=== PATIENT | female | born 1955 | race Caucasian/White ===

== ENCOUNTER 2018-05-01 09:55 | Emergency (ER) | payer OTHER ==
[2018-05-01] MEDS: KETOROLAC 30 MG INJ IM (10:29)
== END 2018-05-01 13:01 | disposition left against medical advice (07) ==
LOC: FTE 13:01
DX: S82.122A Displaced fracture of lateral condyle of left tibia, initial encounter for closed fracture (principal); E11.9 Type 2 diabetes mellitus without complications; W01.0XXA Fall on same level from slipping, tripping and stumbling without subsequent striking against object, initial encounter; Y92.89 Other specified places as the place of occurrence of the external cause; Z79.82 Long term (current) use of aspirin; Z79.84 Long term (current) use of oral hypoglycemic drugs
CPT/HCPCS: 29515; 73562; 96372; 99284-25

== ENCOUNTER 2018-06-02 17:03 | Inpatient (IN) | payer OTHER ==
[2018-06-02 19:48] LABS: ADD MAN DIFF? NO
[2018-06-02 19:50] LABS: WHITE BLOOD COUNT 16.6 10^3/ul (4.8-10.8)
[2018-06-02 19:50] LABS: BASOPHIL # 0.1 10^3/ul (0.0-0.1); BASOPHILS % 0.7 % (0.0-2.0); EOSINOPHILS # 0.4 10^3/ul (0.0-0.5); EOSINOPHILS % 2.1 % (0.0-7.0); HEMATOCRIT 39.7 % (37.0-47.0); HEMOGLOBIN 12.4 g/dl (12.0-16.0); LYMPHOCYTES % 30.2 % (15.0-51.0); MEAN CORPUSCULAR HEMOGLOBIN 24.9 pg (29.0-33.0); MEAN CORPUSCULAR HGB CONC 31.2 g/dl (32.0-37.0); MEAN CORPUSCULAR VOLUME 79.7 fl (82.0-101.0); MONOCYTE # 0.9 10^3/ul (0.3-0.9); MONOCYTES % 5.5 % (0.0-11.0); NEUTROPHIL # 10.1 10^3/ul (1.6-7.5); PLATELET COUNT 458 10^3/UL (140-415); RED BLOOD COUNT 4.98 10^6/ul (4.20-5.40)
[2018-06-02 20:07] LABS: INR 0.91; PROTIME 12.4 Sec (11.9-14.9)
[2018-06-02 20:08] LABS: PARTIAL THROMBOPLASTIN TIME 27.5 Sec (23.0-35.0)
[2018-06-02 20:11] LABS: ALANINE AMINOTRANSFERASE 13 IU/L (13-69); ALBUMIN 4.1 g/dl (3.3-4.9); ALBUMIN/GLOBULIN RATIO 1.07; ALKALINE PHOSPHATASE 154 IU/L (42-121); ANION GAP 11 (5-13); ASPARTATE AMINO TRANSFERASE 13 IU/L (15-46); BILIRUBIN,INDIRECT 0.2 mg/dl (0-1.1); BILIRUBIN,TOTAL 0.2 mg/dl (0.2-1.3); BLOOD UREA NITROGEN 11 mg/dl (7-20); CARBON DIOXIDE 25 mmol/L (21-31); CHLORIDE 105 mmol/L (97-110); CREATININE 0.54 mg/dl (0.44-1.00); Estimated GFR > 60 mL/min (>60); GLUCOSE 117 mg/dl (70-220); LIPASE 201 U/L (23-300); POTASSIUM 3.7 mmol/L (3.5-5.1); SODIUM 141 mmol/L (135-144); TOTAL PROTEIN 7.9 g/dl (6.1-8.1)
[2018-06-02] MEDS: SOD CHLORIDE 0.9% 250 ML IV (20:15)
[2018-06-02] MEDS ORDERED: ONDANSETRON 4 MG INJ IV ×2 (20:30→21:30)
[2018-06-02] MEDS ORDERED: morphine 2 MG INJ IV (20:30)
[2018-06-02] MEDS ORDERED: BISACODYL (EC) 5 MG TAB PO (20:30)
[2018-06-02] MEDS ORDERED: ACETAMINOPHEN 325 MG TAB PO (20:30)
[2018-06-02] MEDS ORDERED: DOCUSATE SODIUM 100 MG CAP PO (20:30)
[2018-06-02] MEDS ORDERED: NACL 0.9% 3 ML SYG IV (20:30)
[2018-06-02 20:48] LABS: HEMOGLOBIN A1C 12.5 % (0-5.9)
[2018-06-02] MEDS ORDERED: CEFAZOLIN 3 GM in DEXTROSE 5% 100 ML IVPB (21:30)
[2018-06-02] MEDS ORDERED: GLUCOSE GEL 15 GRAM TUBE BUCCAL (22:00)
[2018-06-02] MEDS ORDERED: GLUCOSE GEL 15 GRAM TUBE PO ×2 (22:00)
[2018-06-02] MEDS ORDERED: GLUCAGON 1 MG INJ IM (22:00)
[2018-06-02] MEDS ORDERED: DEXTROSE 50% 50 ML SYRINGE IV ×2 (22:00)
[2018-06-02] MEDS: INSULIN GLARGINE [LANTus] (100 UNITS/ML) SYG SC (22:49)
[2018-06-02 23:04] LABS: MAGNESIUM 1.8 mg/dl (1.7-2.5)
[2018-06-03] MEDS: POTASSIUM CHLORIDE (SR) 20 MEQ TAB PO (00:12)
[2018-06-03] MEDS: SOD CHLORIDE 0.9% 1,000 ML IV ×2 (00:12→12:16)
[2018-06-03] MEDS: ACCU-CHEK XX ×2 (02:00)
[2018-06-03] MEDS: INSULIN ASPART [NOVOLOG] 3 ML PEN SC ×5 (05:00→20:34)
[2018-06-03] MEDS: CEFAZOLIN 2 GM/50 ML (PMX) 50 ML IVPB (06:00)
[2018-06-03 06:04] LABS: ADD MAN DIFF? NO
[2018-06-03 06:07] LABS: BASOPHIL # 0.1 10^3/ul (0.0-0.1); BASOPHILS % 0.5 % (0.0-2.0); EOSINOPHILS # 0.4 10^3/ul (0.0-0.5); HEMOGLOBIN 11.1 g/dl (12.0-16.0); LYMPHOCYTES # 3.6 10^3/ul (0.8-2.9); LYMPHOCYTES % 25.7 % (15.0-51.0); MEAN CORPUSCULAR HEMOGLOBIN 24.8 pg (29.0-33.0); MEAN CORPUSCULAR HGB CONC 30.8 g/dl (32.0-37.0); MEAN CORPUSCULAR VOLUME 80.5 fl (82.0-101.0); MONOCYTE # 0.8 10^3/ul (0.3-0.9); MONOCYTES % 5.8 % (0.0-11.0); NEUTROPHIL # 9.1 10^3/ul (1.6-7.5); NEUTROPHILS % 64.5 % (39.0-77.0); PLATELET COUNT 428 10^3/UL (140-415); RED BLOOD COUNT 4.47 10^6/ul (4.20-5.40)
[2018-06-03 06:07] LABS: WHITE BLOOD COUNT 14.1 10^3/ul (4.8-10.8)
[2018-06-03 06:31] LABS: ALANINE AMINOTRANSFERASE 16 IU/L (13-69); ALBUMIN 3.7 g/dl (3.3-4.9); ALBUMIN/GLOBULIN RATIO 1.23; ALKALINE PHOSPHATASE 115 IU/L (42-121); ANION GAP 11 (5-13); ASPARTATE AMINO TRANSFERASE 19 IU/L (15-46); BILIRUBIN,INDIRECT 0.3 mg/dl (0-1.1); BILIRUBIN,TOTAL 0.3 mg/dl (0.2-1.3); BLOOD UREA NITROGEN 14 mg/dl (7-20); CALCIUM 9.1 mg/dl (8.4-10.2); CARBON DIOXIDE 27 mmol/L (21-31); CHLORIDE 105 mmol/L (97-110); CREATININE 0.44 mg/dl (0.44-1.00); Estimated GFR > 60 mL/min (>60); GLUCOSE 124 mg/dl (70-220); POTASSIUM 4.2 mmol/L (3.5-5.1); SODIUM 143 mmol/L (135-144); TOTAL PROTEIN 6.7 g/dl (6.1-8.1)
[2018-06-03 06:33] LABS: HEMOGLOBIN A1C 12.7 % (0-5.9)
[2018-06-03 06:37] LABS: CHOL/HDL RATIO 2.8 RATIO; HDL CHOLESTEROL 51 mg/dl (35-98); LDL CHOLESTEROL,CALCULATED 67 mg/dl; TRIGLYCERIDES 127 mg/dl (0-149)
[2018-06-03 06:37] LABS: CHOLESTEROL 143 mg/dl (100-200)
[2018-06-03] MEDS: IPRATROPIUM (NEB) 0.5 MG/2.5 ML AMP HHN ×5 (07:00→20:27)
[2018-06-03 07:02] LABS: IRON 34 ug/dl (35-150)
[2018-06-03 07:06] LABS: FERRITIN 27.4 ng/ml (11.1-264.0)
[2018-06-03 07:12] LABS: % IRON SATURATION 9 % SAT (22-52); TOTAL IRON BINDING CAPACITY 361 ug/dl (241-421)
[2018-06-03] MEDS ORDERED: INSULIN ASPART [NOVOLOG] 3 ML PEN SC (08:00)
[2018-06-03 08:24] LABS: ADD UMIC YES; UR ASCORBIC ACID NEGATIVE (NEGATIVE); UR BACTERIA FEW /HPF (NONE SEEN); UR BILIRUBIN (Dip) NEGATIVE (NEGATIVE); UR BLOOD (Dip) NEGATIVE (NEGATIVE); UR CLARITY CLEAR (CLEAR); UR COLOR STRAW (YELLOW); UR GLUCOSE (Dip) NEGATIVE (NEGATIVE); UR KETONES (Dip) NEGATIVE (NEGATIVE); UR LEUKOCYTE ESTERASE (Dip) 1+ Leu/ul (NEGATIVE); UR NITRITE (Dip) NEGATIVE (NEGATIVE); UR RBC 0 /HPF (0-5); UR SPECIFIC GRAVITY (Dip) 1.008 (1.003-1.030); UR TOTAL PROTEIN (Dip) NEGATIVE (NEGATIVE); UR UROBILINOGEN (Dip) NEGATIVE (NEGATIVE); UR WBC 4 /HPF (0-5)
[2018-06-03] MEDS: LEVOTHYROXINE 150 MCG TAB PO (09:00)
[2018-06-03] MEDS: LISINOPRIL 10 MG TAB PO (09:00)
[2018-06-03] MEDS ORDERED: IPRATROPIUM (NEB) 0.5 MG/2.5 ML AMP HHN (09:00)
[2018-06-03] MEDS: FLUTICASONE 0.05% 16 GM NAS SPRAY NASAL ×2 (09:01→20:35)
[2018-06-03] MEDS: MAGNESIUM OXIDE 400 MG TAB PO ×2 (09:01→20:34)
[2018-06-03] MEDS: ENOXAPARIN 40 MG/0.4 ML SYG SC (13:06)
[2018-06-03] MEDS: LEVOFLOXACIN 500 MG TAB PO (13:07)
[2018-06-04] MEDS: IPRATROPIUM (NEB) 0.5 MG/2.5 ML AMP HHN ×6 (00:37→20:25)
[2018-06-04] MEDS: SOD CHLORIDE 0.9% 1,000 ML IV ×2 (01:34→13:30)
[2018-06-04] MEDS: ACCU-CHEK XX ×3 (01:34)
[2018-06-04] MEDS: HYDROCODONE/APAP (5/325) TAB PO (05:15)
[2018-06-04] MEDS: LEVOFLOXACIN 500 MG TAB PO (05:15)
[2018-06-04 05:50] LABS: ADD MAN DIFF? NO
[2018-06-04 05:52] LABS: BASOPHIL # 0.1 10^3/ul (0.0-0.1); BASOPHILS % 0.5 % (0.0-2.0); EOSINOPHILS # 0.3 10^3/ul (0.0-0.5); EOSINOPHILS % 2.2 % (0.0-7.0); HEMATOCRIT 39.1 % (37.0-47.0); LYMPHOCYTES # 3.8 10^3/ul (0.8-2.9); LYMPHOCYTES % 26.3 % (15.0-51.0); MEAN CORPUSCULAR HEMOGLOBIN 24.7 pg (29.0-33.0); MEAN CORPUSCULAR HGB CONC 30.7 g/dl (32.0-37.0); MEAN CORPUSCULAR VOLUME 80.5 fl (82.0-101.0); MONOCYTE # 0.8 10^3/ul (0.3-0.9); MONOCYTES % 5.8 % (0.0-11.0); NEUTROPHIL # 9.3 10^3/ul (1.6-7.5); NEUTROPHILS % 64.7 % (39.0-77.0); PLATELET COUNT 464 10^3/UL (140-415); RED BLOOD COUNT 4.86 10^6/ul (4.20-5.40); RED CELL DISTRIBUTION WIDTH 15.2 % (11.5-14.5)
[2018-06-04 05:52] LABS: WHITE BLOOD COUNT 14.4 10^3/ul (4.8-10.8)
[2018-06-04 06:23] LABS: ANION GAP 8 (5-13); BLOOD UREA NITROGEN 14 mg/dl (7-20); CARBON DIOXIDE 27 mmol/L (21-31); CHLORIDE 105 mmol/L (97-110); CREATININE 0.48 mg/dl (0.44-1.00); Estimated GFR > 60 mL/min (>60); GLUCOSE 212 mg/dl (70-220); POTASSIUM 4.3 mmol/L (3.5-5.1); SODIUM 140 mmol/L (135-144)
[2018-06-04] MEDS: INSULIN ASPART [NOVOLOG] 3 ML PEN SC ×5 (08:25→23:50)
[2018-06-04] MEDS: LEVOTHYROXINE 150 MCG TAB PO (08:26)
[2018-06-04] MEDS: FLUTICASONE 0.05% 16 GM NAS SPRAY NASAL ×2 (08:26→21:00)
[2018-06-04] MEDS: ENOXAPARIN 40 MG/0.4 ML SYG SC (09:00)
[2018-06-04] MEDS ORDERED: BUPIVACAINE 0.25% (MPF) 30 ML INJ (17:06)
[2018-06-04] MEDS ORDERED: HYDROmorphONE 1 MG/5 ML IV SYRINGE IV ×3 (17:30)
[2018-06-04] MEDS ORDERED: hydrALAzine 20 MG INJ IV (17:30)
[2018-06-04] MEDS ORDERED: MEPERIDINE 25 MG INJ IV (17:30)
[2018-06-04] MEDS ORDERED: LABETALOL HCL 20MG INJ IV (17:30)
[2018-06-04] MEDS ORDERED: ROCURONIUM 50 MG INJ ×3 (17:34→20:09)
[2018-06-04] MEDS ORDERED: PROPOFOL 20 ML (17:34)
[2018-06-04] MEDS ORDERED: LIDOCAINE 1% (MDV) 20 ML INJ (17:34)
[2018-06-04] MEDS ORDERED: MIDAZOLAM 1 MG/ML 2 ML INJ (17:34)
[2018-06-04] MEDS ORDERED: ROPIVACAINE 0.5 % 30 ML VIAL (17:39)
[2018-06-04] MEDS ORDERED: DEXAMETHASONE 4 MG/ML 5 ML INJ (17:40)
[2018-06-04] MEDS ORDERED: PHENYLephrine (100 MCG/ML) 10ML SYG ×2 (17:54→18:20)
[2018-06-04] MEDS ORDERED: CEFAZOLIN 1 GM INJ (17:59)
[2018-06-04] MEDS ORDERED: ONDANSETRON 4 MG INJ (17:59)
[2018-06-04] MEDS ORDERED: PHENYLephrine 10 MG INJ (18:20)
[2018-06-04] MEDS: POLYMYXIN/BACITRACIN 1L IRRIG (18:47)
[2018-06-04] MEDS ORDERED: POLYMYXIN/BACITRACIN 1L IRRIG (19:33)
[2018-06-04] MEDS: POLYMYXIN/BACITRACIN 1L IRRIG IRR (19:35)
[2018-06-04] MEDS ORDERED: FENTAnyl 50 MCG/ML VIAL ×2 (19:45→20:31)
[2018-06-04] MEDS ORDERED: BACITRACIN/POLYMYXIN 28.35 GM OINT TOP (20:24)
[2018-06-04] MEDS ORDERED: SUGAMMADEX SODIUM 200 MG/2 ML VIAL IV (21:00)
[2018-06-04] MEDS ORDERED: morphine 10 MG INJ (21:00)
[2018-06-04] MEDS: CEFAZOLIN 1 GM INJ IV (21:30)
[2018-06-04] MEDS ORDERED: oxyCODONE 5 MG TAB PO (21:30)
[2018-06-04] MEDS ORDERED: DIPHENHYDRAMINE 25 MG CAP PO (21:30)
[2018-06-04] MEDS ORDERED: ACETAMINOPHEN 325 MG TAB PO (21:30)
[2018-06-04] MEDS ORDERED: ONDANSETRON 4 MG INJ IV (21:30)
[2018-06-04] MEDS: ONDANSETRON 4 MG INJ IV (21:32)
[2018-06-05] MEDS: METOCLOPRAMIDE 10 MG INJ IV (00:50)
[2018-06-05] MEDS: IPRATROPIUM (NEB) 0.5 MG/2.5 ML AMP HHN ×6 (01:14→20:36)
[2018-06-05] MEDS: INSULIN GLARGINE [LANTus] (100 UNITS/ML) SYG SC ×2 (01:26→20:59)
[2018-06-05] MEDS: SOD CHLORIDE 0.9% 1,000 ML IV ×3 (01:28→15:58)
[2018-06-05] MEDS: CEFAZOLIN 1 GM/50 ML (PMX) 50 ML IVPB ×4 (01:32→22:45)
[2018-06-05] MEDS: ACCU-CHEK XX ×4 (02:00→03:26)
[2018-06-05] MEDS ORDERED: CEFAZOLIN 1 GM/50 ML (PMX) 50 ML IVPB (05:49)
[2018-06-05 05:56] LABS: ADD MAN DIFF? NO
[2018-06-05 06:09] LABS: WHITE BLOOD COUNT 18.3 10^3/ul (4.8-10.8)
[2018-06-05 06:09] LABS: BASOPHILS % 0.2 % (0.0-2.0); HEMATOCRIT 39.1 % (37.0-47.0); HEMOGLOBIN 12.2 g/dl (12.0-16.0); LYMPHOCYTES # 1.6 10^3/ul (0.8-2.9); LYMPHOCYTES % 8.5 % (15.0-51.0); MEAN CORPUSCULAR HEMOGLOBIN 25.1 pg (29.0-33.0); MEAN CORPUSCULAR HGB CONC 31.2 g/dl (32.0-37.0); MEAN CORPUSCULAR VOLUME 80.3 fl (82.0-101.0); MEAN PLATELET VOLUME 10.1 fl (7.4-10.4); MONOCYTE # 0.4 10^3/ul (0.3-0.9); MONOCYTES % 2.1 % (0.0-11.0); NEUTROPHIL # 16.2 10^3/ul (1.6-7.5); NEUTROPHILS % 88.4 % (39.0-77.0); PLATELET COUNT 438 10^3/UL (140-415); RED BLOOD COUNT 4.87 10^6/ul (4.20-5.40)
[2018-06-05] MEDS: LEVOFLOXACIN 500 MG TAB PO (06:37)
[2018-06-05] MEDS: LEVOTHYROXINE 150 MCG TAB PO (06:39)
[2018-06-05 06:47] LABS: ANION GAP 11 (5-13); BLOOD UREA NITROGEN 17 mg/dl (7-20); CALCIUM 9.9 mg/dl (8.4-10.2); CARBON DIOXIDE 26 mmol/L (21-31); CHLORIDE 104 mmol/L (97-110); CREATININE 0.45 mg/dl (0.44-1.00); Estimated GFR > 60 mL/min (>60); GLUCOSE 302 mg/dl (70-220); POTASSIUM 4.6 mmol/L (3.5-5.1); SODIUM 141 mmol/L (135-144)
[2018-06-05] MEDS: CHOLECALCIFEROL 1,000 UNIT TAB PO (08:13)
[2018-06-05] MEDS: GABAPENTIN 300 MG CAP PO ×3 (08:14→20:51)
[2018-06-05] MEDS: ASCORBIC ACID 500 MG TAB PO (08:14)
[2018-06-05] MEDS: FERROUS FUMARATE (SR) TAB PO (08:14)
[2018-06-05] MEDS: PRENATAL VITAMIN PO (08:14)
[2018-06-05] MEDS: SENNA/DOCUSATE NA (8.6MG/50MG) TAB PO ×2 (08:14→20:51)
[2018-06-05] MEDS: FLUTICASONE 0.05% 16 GM NAS SPRAY NASAL ×2 (08:14→20:51)
[2018-06-05] MEDS: INSULIN ASPART [NOVOLOG] 3 ML PEN SC ×4 (08:16→20:58)
[2018-06-05] MEDS: AMOXICILLIN/CLAV 875 MG TAB PO ×2 (13:46→20:51)
[2018-06-05] MEDS: RIVAROXABAN 10 MG TABLET PO (17:33)
[2018-06-05] MEDS ORDERED: MINERAL OIL 30ML CUP PO (19:00)
[2018-06-05] MEDS ORDERED: INSULIN GLARGINE [LANTus] (100 UNITS/ML) SYG SC (20:00)
[2018-06-05] MEDS: HYDROCODONE/APAP (5/325) TAB PO (20:53)
[2018-06-06] MEDS: IPRATROPIUM (NEB) 0.5 MG/2.5 ML AMP HHN ×4 (01:11→13:00)
[2018-06-06] MEDS: ACCU-CHEK XX ×3 (02:00)
[2018-06-06] MEDS: SOD CHLORIDE 0.9% 1,000 ML IV (02:35)
[2018-06-06] MEDS: CEFAZOLIN 1 GM/50 ML (PMX) 50 ML IVPB ×2 (05:28→15:31)
[2018-06-06 07:36] LABS: ADD MAN DIFF? NO
[2018-06-06 07:47] LABS: WHITE BLOOD COUNT 17.4 10^3/ul (4.8-10.8)
[2018-06-06 07:47] LABS: ABNORMAL IP MESSAGE 1; BASOPHIL # 0.1 10^3/ul (0.0-0.1); BASOPHILS % 0.5 % (0.0-2.0); EOSINOPHILS # 0.1 10^3/ul (0.0-0.5); EOSINOPHILS % 0.4 % (0.0-7.0); HEMATOCRIT 36.5 % (37.0-47.0); HEMOGLOBIN 11.1 g/dl (12.0-16.0); LYMPHOCYTES # 5.3 10^3/ul (0.8-2.9); LYMPHOCYTES % 30.2 % (15.0-51.0); MEAN CORPUSCULAR HEMOGLOBIN 25.2 pg (29.0-33.0); MEAN CORPUSCULAR HGB CONC 30.4 g/dl (32.0-37.0); MEAN CORPUSCULAR VOLUME 82.8 fl (82.0-101.0); MEAN PLATELET VOLUME 10.5 fl (7.4-10.4); MONOCYTE # 1.3 10^3/ul (0.3-0.9); MONOCYTES % 7.6 % (0.0-11.0); NEUTROPHIL # 10.6 10^3/ul (1.6-7.5); NEUTROPHILS % 60.8 % (39.0-77.0); PLATELET COUNT 409 10^3/UL (140-415); RED BLOOD COUNT 4.41 10^6/ul (4.20-5.40); RED CELL DISTRIBUTION WIDTH 15.3 % (11.5-14.5)
[2018-06-06 08:04] LABS: ANION GAP 9 (5-13); BLOOD UREA NITROGEN 16 mg/dl (7-20); CARBON DIOXIDE 28 mmol/L (21-31); CHLORIDE 104 mmol/L (97-110); CREATININE 0.49 mg/dl (0.44-1.00); Estimated GFR > 60 mL/min (>60); GLUCOSE 201 mg/dl (70-220); POTASSIUM 3.4 mmol/L (3.5-5.1); SODIUM 141 mmol/L (135-144)
[2018-06-06] MEDS: LEVOTHYROXINE 150 MCG TAB PO (08:05)
[2018-06-06] MEDS: INSULIN ASPART [NOVOLOG] 3 ML PEN SC ×2 (08:11→12:08)
[2018-06-06] MEDS: PRENATAL VITAMIN PO (08:32)
[2018-06-06] MEDS: ASCORBIC ACID 500 MG TAB PO (08:32)
[2018-06-06] MEDS: AMOXICILLIN/CLAV 875 MG TAB PO (08:32)
[2018-06-06] MEDS: CHOLECALCIFEROL 1,000 UNIT TAB PO (08:32)
[2018-06-06] MEDS: FLUTICASONE 0.05% 16 GM NAS SPRAY NASAL (08:32)
[2018-06-06] MEDS: GABAPENTIN 300 MG CAP PO ×2 (08:32→15:30)
[2018-06-06] MEDS: SENNA/DOCUSATE NA (8.6MG/50MG) TAB PO (08:32)
[2018-06-06] MEDS: HYDROmorphONE 1 MG/ML SYG IV (08:34)
[2018-06-06] MEDS: FERROUS FUMARATE (SR) TAB PO (08:39)
[2018-06-06] MEDS: POTASSIUM CHLORIDE (SR) 20 MEQ TAB PO (15:30)
== END 2018-06-06 16:34 | disposition home health service (06) | DRG 492 ==
LOC: E/R 17:03 → PP2 20:04
PROC: 0QSH04Z Reposition Left Tibia with Internal Fixation Device, Open Approach (ICD-10-PCS; principal; 2018-06-04 17:30)
PROC: 0QUH0KZ Supplement Left Tibia with Nonautologous Tissue Substitute, Open Approach (ICD-10-PCS; 2018-06-04 17:30)
DX: S82.142A Displaced bicondylar fracture of left tibia, initial encounter for closed fracture (principal); J18.9 Pneumonia, unspecified organism; Z68.41 Body mass index [BMI] 40.0-44.9, adult; J20.9 Acute bronchitis, unspecified; E66.9 Obesity, unspecified; W19.XXXA Unspecified fall, initial encounter; I10 Essential (primary) hypertension; E03.9 Hypothyroidism, unspecified; E11.65 Type 2 diabetes mellitus with hyperglycemia; E78.5 Hyperlipidemia, unspecified; M21.372 Foot drop, left foot; T41.3X5A Adverse effect of local anesthetics, initial encounter
CPT/HCPCS: 36415; 70450; 71045; 73562; 73700; 80048; 80053; 80061; 81001; 82306; 82728; 82962; 83036; 83540; 83690; 83735; 84443; 85025; 85610; 85730; 93005; 93306; 94640; 94664; 97110; 97116; 97161; 99285-25